=== PATIENT | male | born 2000 | race Caucasian/White ===

== ENCOUNTER 2018-11-15 04:20 | Emergency (ER) | payer SELFPAY ==
[~2018-11-15] VITALS: Ht 162.6 cm; Wt 77.0 kg
[2018-11-15 04:44] VITALS: RESP 18; Ht 162.6 cm; Wt 77.0 kg
[2018-11-15] MEDS ORDERED: BACITUD TOP (08:09)
--- NOTE | 2018-11-15 08:22 | ERD ---
ER Documentation Chief Complaint Chief Complaint penile bleeding just now, no injury HPI This is a 18-year-old male with a nonsignificant past medical history presents ED with penile bleeding. Patient states that he awoke from sleep and he believes that maybe he struck his penis in his sleep and he has been having some bleeding from the penile head. Patient denies any forceful masturbation or forceful intercourse to account for penile bleeding. Patient is sexually active with one female and states that he last had sexual intercourse 2 months ago. Denies dysuria, scrotal pain, scrotal swelling, history of STD, nausea, vomiting, diarrhea, constipation, fever, chills and other symptoms. Patient is uncircumcised. ROS All systems reviewed and are negative except as per history of present illness. Medications Home Meds Active Scripts Bacitracin* (Bacitracin Oint (UD)*) 1 Applic Oint, 1 APPLIC TOP ONCE for 10 Days, PKT APPLY TO Prov:ROQUE CHRISTIANSON PA-C 11/15/18 Allergies Allergies: Coded Allergies: No Known Allergy (Unverified , 11/15/18) PMhx/Soc Medical and Surgical Hx: pt denies Medical Hx, pt denies Surgical Hx Hx Alcohol Use: No Hx Substance Use: No Hx Tobacco Use: No Smoking Status: Never smoker FmHx Family History: No diabetes Physical Exam Vitals Vital Signs Date Temp Pulse Resp B/P (MAP) Pulse Ox O2 O2 Flow FiO2 Time Delivery Rate 11/15/18 98.5 73 18 126/61 100 04:44 (82) Physical Exam Physical Exam Vitals signs: Reviewed by me. General: Well developed, well nourished, in no acute distress. Patient is awake and alert. Head: Normocephalic, atraumatic. Eyes: Normal conjunctiva, Pupils PERRLA, EOM intact grossly ENT: Pharynx is clear, Moist mucous membranes, external ears, nose and mouth normal Neck: Supple, no masses, lymphadenopathy or JVD Respiratory: Clear to auscultation bilaterally with no wheezing, rhonchi, rales, no distress Cardiovascular: RRR, no murmurs, rubs, or gallops Abdominal: Soft, non-tender, non-distended, no peritoneal signs : Exam: There are no lesions on the penis or ulcerations on penis, when retracting foreskin there is a small wound that is bleeding where the frenulum attaches to the penis and it appears that the frenulum has been torn slightly Scrotum: Normal Hernia: None Testes/Epid: Non-tender w/ normal lie Cremaster: Reflex intact Lymph: No inguinal lymphadenopathy Discharge: None Neurologic: Alert and oriented, moving all extremities, normal speech, no focal weakness, no cerebellar signs. Normal mentation Skin: warm and dry, No rash Psych: Normal mood Procedures/MDM ER COURSE: The patient was stable throughout ED course. I kept the patient and/or family informed of laboratory and diagnostic imaging results throughout the emergency room course. The patient was promptly evaluated and a treatment plan was devised based on H&P and other data. This plan was discussed with the patient who agreed and had no further questions or concerns prior to discharge. MEDICAL DECISION MAKIN-year-old male who presents ED with wound to penis. There appears to be a small wound where the frenulum attaches to the penis that has been torn. Wound care was provided in the emergency department. Patient was advised to clean this area daily and apply bacitracin. Patient was also advised to follow-up with urology. At this time there is no genitourinary emergency. No evidence of testicular torsion. Vitals are stable patient can be managed with close outpatient follow-up. Advised patient follow-up with primary care in the next 48 hours. Return to ED with any worsening symptoms DISPOSITION PLAN: We discussed follow up with the patient's primary care doctor within 24 to 48 hours. Patient counseled regarding my diagnostic impression and care plan. Prior to discharge all questions answered. Pt agrees with treatment plan and understands strict return precautions. Precautionary instructions provided including instructions to return to the ER if not improving or for any worsening or changing symptoms or concerns. ExitCare instructions provided. Prior to discharge, patients vital signs have been reviewed SPECIALIST FOLLOW UP RECOMMENDED: None Patient has been advised to follow up with primary care in 1-2 days. Disclaimer: Inadvertent spelling and grammatical errors are likely due to EHR/dictation software use and do not reflect on the overall quality of patient care. Also, please note that the electronic time recorded on this note does not necessarily reflect the actual time of the patient encounter. Departure Diagnosis: Primary Impression: Injury of male external genital organs Encounter type: initial encounter Qualified Codes: S39.94XA - Unspecified injury of external genitals, initial encounter Condition: Stable Patient Instructions: Care of the Uncircumcised Penis, Wound Care Referrals: CHANDU CABALLERO MD,NIC DE SANTIAGO,SUSY PAULA,RAD IRAHETA,HANK KEEN,BONNIE MOREAU,ROBI GOSS,APPLE STREETER,KACIE TAI,TRAMAINE GILLESPIE,CEDRIC LOCKE MD= [facility] YOU HAVE RECEIVED A MEDICAL SCREENING EXAM AND THE RESULTS INDICATE THAT YOU DO NOT HAVE A CONDITION THAT REQUIRES URGENT TREATMENT IN THE EMERGENCY DEPARTMENT. FURTHER EVALUATION AND TREATMENT OF YOUR CONDITION CAN WAIT UNTIL YOU ARE SEEN IN YOUR DOCTORS OFFICE WITHIN THE NEXT 1-2 DAYS. IT IS YOUR RESPONSIBILITY TO MAKE AN APPOINTMENT FOR FOLOW-UP CARE. IF YOU HAVE A PRIMARY DOCTOR --you should call your primary doctor and schedule an appointment IF YOU DO NOT HAVE A PRIMARY DOCTOR YOU CAN CALL OUR PHYSICIAN REFERRAL HOTLINE AT IF YOU CAN NOT AFFORD TO SEE A PHYSICIAN YOU CAN CHOSE FROM THE FOLLOWING [facility] CL[facility]ICS [facility] [address] [facility]. [facility] [address] [facility] [address] [facility] [address] [facility]. [facility] [address] [facility]. [facility] [address] Additional Instructions: Return in 2 days for wound check. Also follow-up with urology. Patient advised to return to the ED immediately for new or worsening symptoms. Patient advised to follow up with primary care provider in the next 24-48 hours. Patient verbalized understanding and agrees with treatment plan and course of action. If patient has no primary care they may follow up with one of the [facility] clinics listed on the following page or one of the options listed below [facility] + [address] [address] or [facility] [address] [place] [address] or [facility] [address] [place] [address] ROQUE CHRISTIANSON PA-C Nov 15, 2018 08:22
[2018-11-15 08:38] VITALS: BP 122/69; PULSE 75
== END 2018-11-15 08:40 | disposition home or self-care (01) ==
LOC: FTE 04:20
DX: S39.94XA Unspecified injury of external genitals, initial encounter (principal); X58.XXXA Exposure to other specified factors, initial encounter; Y92.9 Unspecified place or not applicable
CPT/HCPCS: 99283

== ENCOUNTER 2018-11-17 11:47 | Emergency (ER) | payer SELFPAY ==
[~2018-11-17] VITALS: Ht 170.2 cm; Wt 78.5 kg
[~2018-11-17 11:47] MED LIST: BACITUD TOP
[2018-11-17 12:24] VITALS: BP 143/82; PULSE 89; RESP 20; Ht 170.2 cm; Wt 78.5 kg
--- NOTE | 2018-11-17 15:08 | ERD ---
ER Documentation Chief Complaint Chief Complaint recheck HPI This patient presents following instructions to recheck wound to penis. Patient was at this ER yesterday with complaint of pain in penis after somehow cutting it he states while in his sleep. Patient able to easily retract foreskin, no bleeding, no swelling, no lesions. Some redness and open skin at frenulum, no active bleeding, no drainage, no signs of infection. Since states he has been applying the new porosis and ointment as prescribed. Denies any fevers, denies pain. No swelling to testicles. She ambulates with a steady gait. ROS All systems reviewed and are negative except as per history of present illness. Medications Home Meds Active Scripts Bacitracin* (Bacitracin Oint (UD)*) 1 Applic Oint, 1 APPLIC TOP ONCE for 10 Days, PKT APPLY TO Prov:ROQUE CHRISTIANSON PA-C 11/15/18 Allergies Allergies: Coded Allergies: No Known Allergy (Unverified , 11/17/18) PMhx/Soc Medical and Surgical Hx: pt denies Medical Hx, pt denies Surgical Hx Hx Alcohol Use: No Hx Substance Use: No Hx Tobacco Use: No Smoking Status: Never smoker Physical Exam Vitals Vital Signs Date Temp Pulse Resp B/P (MAP) Pulse Ox O2 O2 Flow FiO2 Time Delivery Rate 11/17/18 99.7 15:43 11/17/18 100.4 89 20 143/82 100 12:24 (102) Physical Exam Const: No acute distress Head: Atraumatic Eyes: Normal Conjunctiva ENT: Normal External Ears, Nose and Mouth. Neck: Full range of motion. No meningismus. Resp: Clear to auscultation bilaterally Cardio: Regular rate and rhythm, no murmurs Abd: Soft, non tender, non distended. Normal bowel sounds Skin: No petechiae or rashes Back: No midline or flank tenderness Ext: No cyanosis, or edema Genital exam: Neur: Awake and alert Psych: Normal Mood and Affect Procedures/MDM This 18-year-old male patient presents with small laceration to penis that occurred he states in his sleep. There is no indication of cellulitis, balanitis, phimosis, traumatic circumcision. This patients soft tissue infection appears to be appropriate for outpatient treatment with close follow-up for reevaluation by a clinician within 24-48 hours. A serious, rapidly progressive infectious process is unlikely based upon the patients presentation and appearance of the infection. Antibiotic treatment has been initiated here and response to treatment will be based on reassessment at close follow-up. The patient has been instructed on signs and symptoms of acute progression of infection and to return immediately if any of these occur. Departure Diagnosis: Primary Impression: Open wound genitals NEC Condition: Stable Patient Instructions: Wound Care Referrals: [facility] YOU HAVE RECEIVED A MEDICAL SCREENING EXAM AND THE RESULTS INDICATE THAT YOU DO NOT HAVE A CONDITION THAT REQUIRES URGENT TREATMENT IN THE EMERGENCY DEPARTMENT. FURTHER EVALUATION AND TREATMENT OF YOUR CONDITION CAN WAIT UNTIL YOU ARE SEEN IN YOUR DOCTORS OFFICE WITHIN THE NEXT 1-2 DAYS. IT IS YOUR RESPONSIBILITY TO MAKE AN APPOINTMENT FOR FOLOW-UP CARE. IF YOU HAVE A PRIMARY DOCTOR --you should call your primary doctor and schedule an appointment IF YOU DO NOT HAVE A PRIMARY DOCTOR YOU CAN CALL OUR PHYSICIAN REFERRAL HOTLINE AT IF YOU CAN NOT AFFORD TO SEE A PHYSICIAN YOU CAN CHOSE FROM THE FOLLOWING [facility] CLINICS [facility] [address] [facility] [address] [facility]. [facility] [address] [facility] [address] [facility] [address] [facility]. [facility]. [address] Additional Instructions: Thank you very much for allowing us to participate in your care. Your health and safety is our top priority at [facility]. Call your primary care doctor TOMORROW for an appointment during the next 2-4 days and bring all the information and medications prescribed. Have prescriptions filled and follow precisely the directions on the label. If the symptoms get worse and your provider is unavailable, return to the Emergency Department immediately. Keep area clean and dry. Continue to use antibiotic ointment as prescribed. Return to the emergency department for increased redness, swelling, unusual discharge. GENE PALACIOS NP Nov 17, 2018 15:08
== END 2018-11-17 15:44 | disposition home or self-care (01) ==
LOC: FTE 11:47
DX: S31.501D Unspecified open wound of unspecified external genital organs, male, subsequent encounter (principal); W26.9XXD Contact with unspecified sharp object(s), subsequent encounter
CPT/HCPCS: 99281